=== PATIENT | male | born 1970 | race Caucasian/White ===

== ENCOUNTER → 2018-08-27 | Outpatient (CLI) | payer OTHER ==
[~2018-08-27] MED LIST: MULT1TAB10 PO
[2018-08-27 09:29] LABS: HEMATOCRIT 32.2 % (42.0-52.0); HEMOGLOBIN 10.9 g/dl (13.5-17.5); MEAN CORPUSCULAR HEMOGLOBIN 29.9 pg (27.0-33.0); MEAN CORPUSCULAR HGB CONC 33.9 g/dl (32.0-36.5); MEAN CORPUSCULAR VOLUME 88.5 fl (80.0-96.0); PLATELET COUNT, AUTOMATED 290 10^3/uL (150-450); RED BLOOD COUNT 3.64 10^6/uL (4.30-6.10); WHITE BLOOD COUNT 5.9 10^3/uL (4.0-10.0)
[2018-08-27 09:55] LABS: INR 0.92; PROTHROMBIN TIME 12.4 SECONDS (12.1-14.4)
[2018-08-27 09:56] LABS: PARTIAL THROMBOPLASTIN TIME 30.2 SECONDS (25.4-37.6)
[2018-08-27 10:00] LABS: ALBUMIN 3.5 GM/DL (3.2-5.2); ALT/SGPT 32 U/L (12-78); BILIRUBIN,TOTAL 0.4 MG/DL (0.2-1.0); BLOOD UREA NITROGEN 17 MG/DL (7-18); CALCIUM LEVEL 8.4 MG/DL (8.5-10.1); CARBON DIOXIDE LEVEL 25 MEQ/L (21-32); CHLORIDE LEVEL 111 MEQ/L (98-107); CHOLESTEROL LEVEL 170 MG/DL (<200); CHOLESTEROL RISK RATIO 4.473 (<5); CREATININE FOR GFR 0.96 MG/DL (0.70-1.30); GLOMERULAR FILTRATION RATE > 60.0 (>60); GLUCOSE, FASTING 92 MG/DL (70-100); HDL CHOLESTEROL 38 MG/DL (>40); LDL CHOLESTEROL 108 MG/DL (<100); NON-HDL-C 132 MG/DL; POTASSIUM SERUM 4.2 MEQ/L (3.5-5.1); SODIUM LEVEL 143 MEQ/L (136-145); TOTAL PROTEIN 6.5 GM/DL (6.4-8.2); TRIGLYCERIDES LEVEL 118 MG/DL (<150)
[2018-08-27 10:50] LABS: H PYLORI QUALITATIVE IgG NEGATIVE (NEGATIVE)
== END ==
LOC: M WUC 08:11
PROVIDERS: ATTEND Family Medicine
DX: K92.1 Melena (principal); R03.0 Elevated blood-pressure reading, without diagnosis of hypertension; R12 Heartburn; E66.9 Obesity, unspecified

== ENCOUNTER → 2018-09-03 | Outpatient (CLI) | payer OTHER ==
[~2018-09-03] MED LIST changes: +E-Z-GAS II EFFERVESCENT PACKET (SODIUM BICARB./CITRIC ACID/SIMETHICONE) As Ordered ONE; +E-Z-HD 98% w/w 340GM SUSP BTL As Ordered ONE; +E-Z-PAQUE 96% w/w SUSP 176GM BTL As Ordered ONE
--- NOTE | 2018-09-03 21:52 | REP ---
UPPER GI AND ESOPHAGRAM AIR CONTRAST The procedure was performed under the direct supervision of Dr. Richardson. The images were reviewed with Dr. Richardson. 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 The intestinal gas pattern is nonspecific. Liquid barium and gas producing granules and given in the erect position as well as liquid barium in the prone oblique positions in order to perform a double contrast esophagram and upper GI examination. During the oral and pharyngeal stages of deglutition there is aspiration without cough response. Esophageal transport is prompt and efficient. In the distal esophagus there is irregular mucosa and small ulcers. Recommend endoscopy for further evaluation. There is gastroesophageal reflux demonstrated to the level of the thoracic inlet. The stomach mcmahon are normally outlined. The rugal folds are smooth and regular. There is no gastritis neoplasm or ulcer disease. The duodenum there are thickened folds which likely represents duodenitis. There is no christina ulcer identified. The visualized portion of the proximal small bowel appears normal in course and caliber. Impression: 1. The patient did aspirate without cough response. 2. In the distal esophagus there is irregular mucosa and a small ulcers. Recommend endoscopy for further evaluation. 3. There is gastroesophageal reflux demonstrated to the level of the thoracic inlet. 4. There are thickened folds in the duodenum which likely represent duodenitis. There is no christina ulcer identified. 3.3 minutes of fluoroscopy time was utilized for this procedure. Reviewed by SONIA Rose 09/03/2018 05:52 P Electronically Signed by Guillermo Richardson MD 09/03/2018 09:42 P
== END ==
LOC: M RAD 10:39
PROVIDERS: ATTEND Family Medicine
DX: K92.1 Melena (principal)

== ENCOUNTER → 2018-09-03 | Outpatient (CLI) | payer OTHER ==
[~2018-09-03] MED LIST changes: -E-Z-GAS II EFFERVESCENT PACKET (SODIUM BICARB./CITRIC ACID/SIMETHICONE) As Ordered ONE; -E-Z-HD 98% w/w 340GM SUSP BTL As Ordered ONE; -E-Z-PAQUE 96% w/w SUSP 176GM BTL As Ordered ONE
[2018-09-03 12:21] LABS: FOLATE 17.4 NG/ML (>5.4); PERCENT SATURATION 13.7 % (19.7-50.0)
== END ==
LOC: M WUC 09:33
PROVIDERS: ATTEND Family Medicine
DX: R53.83 Other fatigue (principal)